=== PATIENT | female | born 1985 | race Caucasian/White ===

== ENCOUNTER → 2017-07-03 08:53 | Outpatient (CLI) | payer OTHER, SELFPAY ==
--- NOTE | 2017-07-03 10:30 | BRBX_PTH ---
PATIENT: JOVANA ISAAC LOC: [facility] U#:[id number] AGE/SX: 39/F ROOM: RE07/03/[address]: Dr. Lore Sanchez MD : 1985 BED: DIS: SPEC #: [id number] RECD: 07/03/17 10:49 STATUS: DANIEL REQ #: [id number] SOMMER: 07/03/17 10:[address]: Lore Sanchez DEPT: SURGICAL PATHOLOGY RECD BY: Peg Newberry ENTERED: 07/03/17 12:27 SP TYPE: BREAST BX OTHR DR: Marisa Steele, MANAGER LIGHTING-C Tissues: Right breast, NOS Procedures: Surgery Specimen Level IV HEADER OPERATION: Right breast stereotactic needle core biopsy PRE-OP DIAGNOSIS: Abnormal mammogram TISSUE SUBMITTED: Right breast, 8 mm nodular density posterior ISCHEMIC TIME: 2 minutes FIXATION TIME: 9 hours MICROSCOPIC DIAGNOSIS Right breast, stereotactic needle core biopsy: Fibroadenoma. AM:paloma 07/04/17 MICROSCOPIC DESCRIPTION Slides are reviewed. GROSS DESCRIPTION Received in fixative is one container labeled with the patient's name and designated right breast. The specimen consists of multiple irregular and elongated fragments of yellow-marshall soft tissue that in aggregate measure 7 x 5 x 0.2 cm. The specimen is totally submitted in four cassettes. / AM:paloma 07/03/17 TC:5 CPT: 14614
--- NOTE | 2017-07-03 10:41 | PCM.OPRPT ---
Report of Operation Date of Procedure: 07/03/17 Pre-Operative Diagnosis: abnormal lesion noted on right breast mammograms Post-Operative Diagnosis: same Surgery/Procedure Performed:: right stereotactic breast biopsy Description of Surgical Findings:: abnormal density noted on right breast mammograms Type of Anesthesia:: Local - 1% xylocaine Specimen's removed: right breast tissue Estimated Blood Loss (mL): < 1 ml Description of Procedure: After informed consent was given, the patient was brought into the breast biopsy suite and then placed in the prone position on the stereotactic biopsy table. Appropriate time out protocol was followed. The patients right breast was then placed in the opening at the head of the table. A roll up guider operator compression mammogram was then obtained in the CC view. The suspicious radiological lesion was then identified. Stereo pictures of the lesion were then taken for XYZ coordinates. The Mammotome biopsy stylus was then positioned where it would be entering into the patients breast. The skin at this site was then cleansed with a surgical skin preparation. The skin and subcutaneous tissues at this site were then infiltrated with 1% xylocaine. A small skin incision was made with an 11 blade scalpel. The biopsy stylus was then positioned into the patients breast at the proper coordinates of depth. Using the Mammotome vacuum-assist device, several core samples of breast tissue were obtained. A hemostatic marker clip was then placed into the biopsy cavity and a roll up guider operator film revealed that it was properly deployed. The patient was then placed in the supine position and pressure was applied to the breast until no active bleeding was noted. Steristrips were applied to reapproximate the skin. A unilateral mammogram in the CC and MLO view were then taken which revealed that the marker clip was in the same area as the previous suspicious lesion. The patient tolerated the procedure well and was discharged from the breast biopsy suite in good condition. - Complications none noted - Admit VTE Documentation VTE Present on Admission: No
== END ==
PROVIDERS: Family Provider Nurse Practitioner Adult Health; PCP Nurse Practitioner Adult Health; Visit Provider Surgery
DX: D24.1 Benign neoplasm of right breast (principal)
CPT/HCPCS: 19081; 88305; J7050; A4648

== ENCOUNTER 2017-07-07 09:17 | Emergency (ER) | payer OTHER, SELFPAY ==
[2017-07-07 09:19] VITALS: BP 140/75; PULSE 75; RESP 14; TEMP 36.2; O2SAT 100; BMI 37.4
--- NOTE | 2017-07-07 09:45 | ED.DCSUM_ITS ---
- ER Visit Summary Date of Service: 07/07/17 Chief Complaint: Right breast bruising History of Present Illness: The patient is a 32 F presenting with bruising to her right breast. She had a biopsy performed per Dr. Sanchez on July 03. She states this morning she awoke and had new bruising just distal to the incision site. There is no redness or warmth. No fever. Denies other complaints. Physical Examination: Vitals are stable. Patient is afebrile. Alert no acute distress. HEENT exam is unremarkable. Neck is supple. Lungs are clear and equal bilaterally. Right breast incision C/D/I, small area of ecchymosis distal to incision site. No erythema, warmth, or drainage. No significant swelling. Heart is regular rate and rhythm. Abdomen is soft nontender nondistended. Extremities are unremarkable. Skin is warm and dry. Remainder of exam is unremarkable. Emergency Department Course and Treatment: Wound appears well-healing. There are no signs of infection. Discussed with Dr. Alcazar. Patient will follow-up with him tomorrow for a wound check. Patient is agreeable with this plan. Disposition: Discharge home Impression: Right breast wound check This note was generated with [employer] dictation software. It may contain incorrect words, spelling, and punctuation that were not noted in review of the chart prior to signing ED Disposition - Plan for ED Patient: Chief Complaint: Wound Check Referrals: Marisa Steele NP-C [Primary Care Provider] -
--- NOTE | 2017-07-07 10:22 | ED.DEP ---
ED Disposition - Plan for ED Patient: Chief Complaint: Wound Check Instructions: ED Wound Check Post Op No Infec Referrals: Marisa Steele NP-Master [Primary Care Provider] - Bert Alcazar MD [STAFF PHYSICIAN] - Additional Instructions: Follow up with Dr Alcazar tomorrow at 9:10am.
--- NOTE | 2017-07-07 10:24 | ED.DEP ---
ED Disposition - Plan for ED Patient: Chief Complaint: Wound Check Instructions: ED Wound Check Post Op No Infec Referrals: Bert Alcazar MD [STAFF PHYSICIAN] - Marisa Steele NP-C [Primary Care Provider] - Additional Instructions: Follow up with Dr Alcazar tomorrow at 9:10am.
== END 2017-07-07 10:30 | disposition home or self-care (01) ==
PROVIDERS: Emergency Provider Emergency Medicine; Family Provider Nurse Practitioner Adult Health; PCP Nurse Practitioner Adult Health
DX: Z48.01 Encounter for change or removal of surgical wound dressing (principal); E07.9 Disorder of thyroid, unspecified
CPT/HCPCS: 99282

== ENCOUNTER 2018-08-09 08:33 | Emergency (ER) | payer OTHER, SELFPAY ==
[2018-08-09 08:34] VITALS: BP 141/90; PULSE 87; RESP 20; TEMP 36.7; O2SAT 100; BMI 35.9
--- NOTE | 2018-08-09 08:38 | RAD_ITS ---
STUDY: X-RAY CHEST REASON FOR EXAM: Female, 33 years old. Chest pain TECHNIQUE: Single AP portable view of the chest. COMPARISON: 05/09/2015 FINDINGS: The lungs are clear and expanded. There is no demonstrated pleural abnormality. Normal size heart. Normal mediastinum and ranjan. Normal visualized pulmonary arteries. Normal visualized aortic arch and descending thoracic aorta. Normal visualized thoracic spine. Normal visualized ribs, clavicles, and shoulders. There is no demonstrated abnormality of the visualized soft tissue structures of the upper abdomen. RAD/Chest 1 View (Portable) IMPRESSION: Normal x-ray examination of the chest. Electronically Signed: Alberto Sanchez DO at 8:53 EDT Tel , Service support ,
--- NOTE | 2018-08-09 08:38 | EKG12_ITS ---
Test Reason : CP Blood Pressure : / mmHG Vent. Rate : 083 BPM Atrial Rate : 083 BPM P-R Int : 158 ms QRS Dur : 082 ms QT Int : 374 ms P-R-T Axes : 044 022 005 degrees QTc Int : 439 ms Normal sinus rhythm Cannot rule out Anterior infarct , age undetermined Abnormal ECG Confirmed by DAVID SAAB, MICHAEL ([id number]), editor city MARLY WESLEY ([id number]) on 08/12/2018 1:23:04 PM Referred By: AL Confirmed By:MICHAEL HERNANDEZ MD
--- NOTE | 2018-08-09 08:40 | ED.DCSUM_ITS ---
- ER Visit Summary Date of Service: 08/09/18 Chief Complaint: Chest pain History of Present Illness: The patient is a 33 F who presents with chest pain. She states that ever since last night she has had a heaviness in the middle part of her chest. It does not radiate. Nothing seems to make this better or worse. She denies nausea, vomiting or shortness of breath. She did have some palpitations last night. She measured her heart rate and it was between 112 and 114. She does have a history of anxiety and thinks it may be contributed to this. She has no cardiac, PE or DVT risk factors. She took no medications for this at home. Physical Examination: Vital signs reviewed. HEENT exam unremarkable. Heart is regular rate and rhythm without murmurs. Lungs are clear to auscultation. Abdomen is soft and nontender. Extremities reveal no edema. Peripheral pulses are equal. Skin exam normal. Neurologic exam normal. Test Results: EKG is normal sinus rhythm with a rate of 89. No ST changes. Intervals normal. Chest x-ray normal. Hemoglobin 11.6, chloride 111. Troponin less than 0.015. Emergency Department Course and Treatment: The patient was given aspirin. She is PERC negative. Her MARKY score is 0. I feel this is likely anxiety. The patient will be discharged home. She will call her doctor for follow-up. She will discuss her anxiety with him/her at this time Treatment Plan: [] Disposition: Discharge Impression: Chest pain, anxiety This note was generated with [employer] software. It may contain incorrect words, spelling, and punctuation that were not noted in review of the chart prior to signing ED Disposition - Plan for ED Patient: Referrals: Marisa Steele, KILO-C [Primary Care Provider] -
[2018-08-09 08:55] LABS: Absolute Lymphocyte Count 1.38 X10^3/ul (0.83-4.51); Absolute Neutrophil Count 2.9 X10^3/uL (2.0-7.7); Basophil# 0.02 X10^3/uL; Basophil% 0.4 % (0-1); Eosinophil# 0.14 X10^3/uL; Eosinophils% 2.9 % (0-5); Hemoglobin 11.6 g/dl (12.0-15.0); Lymphocyte # 1.38 X10^3/ul (4.0); Lymphocyte % 28.3 % (19-41); Mean Corp Hgb Conc 31.4 g/gl (32-36); Mean Corpuscular Hgb 26.7 pg (27.0-32.0); Mean Corpuscular Volume 85.1 fL (81-99); Mean Platelet Vol. 8.3 fl (6.2-12.0); Monocyte# 0.42 X10^3/uL; Monocyte% 8.6 % (0-10); Neutrophil # 2.92 X10^3/uL (2.7-7.7); Neutrophil % 59.8 % (47-70); POSITIVE COUNT NO; POSITIVE DIFFERENTIAL NO; POSITIVE MORPHOLOGY NO; Platelet Count 230 K/mm3 (150-450); RBC Distribution Width CV 13.8 % (11.6-14.6); RBC Distribution Width SD 42.8 fl (35.1-43.9); Red Blood Count 4.35 M/mm3 (4.2-5.4); White Blood Count 4.9 K/mm3 (4.4-11.0)
[2018-08-09] MEDS: Aspirin 81 MG TAB.CHEW 324 MG PO (08:55)
[2018-08-09 09:06] LABS: Anion Gap 4 (5-15); BUN 11 mg/dL (7-18); BUN/Creat Ratio 13.6 RATIO (10-20); Calcium,Total 8.2 mg/dL (8.5-10.1); Chloride 111 mmol/L (98-107); Creatinine, Serum 0.81 mg/dL (0.55-1.02); EST Glomerular Filtration Rate 88 mL/min (>60); Est Glom Filt Rate - Afr Amer 106 mL/min (>60); Estimated Creatinine Clearance 94.21 ml/min; Glucose 89 mg/dL (74-106); Potassium 3.8 mmol/L (3.5-5.1); Sodium Level 142 mmol/L (136-145)
--- NOTE | 2018-08-09 09:13 | ED.DEP ---
ED Disposition - Plan for ED Patient: Disposition: Home or Assisted Living Instructions: ED Chest Pain NonCardiac Referrals: Marisa Steele NP-C [Primary Care Provider] -
[2018-08-09 09:26] VITALS: BP 137/81; PULSE 72; RESP 16; O2SAT 98
== END 2018-08-09 09:27 | disposition home or self-care (01) ==
PROVIDERS: Emergency Provider Emergency Medicine; Family Provider Nurse Practitioner Adult Health; PCP Nurse Practitioner Adult Health
DX: R07.9 Chest pain, unspecified (principal); F41.9 Anxiety disorder, unspecified; E03.9 Hypothyroidism, unspecified
CPT/HCPCS: 71045; 80048; 84484; 85025; 93005; 99284; A4216

== ENCOUNTER 2019-06-11 11:42 | Day surgery (SDC) | payer OTHER, SELFPAY ==
[2019-06-11] VITALS (7 sets, daily range): BP systolic 120–126; BP diastolic 58–74; PULSE 66–80; RESP 15–16; TEMP 36.5–36.7; O2SAT 80–100; BMI 36.0
--- NOTE | 2019-06-11 | EMB_PTH ---
PATIENT: JOVANA ISAAC LOC: [facility] – [place] U#:[id number] AGE/SX: 34/F ROOM: RE06/11/[address]: Dr. Azucena Judge DO : 1985 BED: DIS: 06/11/2019 SPEC #: [id number] RECD: 06/11/19 17:01 STATUS: DANIEL IDRIS #: [id number] SOMMER: 06/11/19 00:[address]: Azucena Judge DEPT: SURGICAL PATHOLOGY RECD BY: Phoenix Harper ENTERED: 06/12/19 10:03 SP TYPE: ENDOM BX/C OTHR DR: Dr. Clarke Haynes MD Tissues: Endometrium, NOS Procedures: Surgery Specimen Level IV HEADER OPERATION: Hysteroscopy, polypectomy, Mirena IUD insertion PRE-OP DIAGNOSIS: Menorrhagia; endometrial polyp TISSUE SUBMITTED: Endometrial polyp tissue MICROSCOPIC DIAGNOSIS Endometrial polyp, biopsy: Polypoid fragments of secretory endometrium. AM:paloma 06/15/19 MICROSCOPIC DESCRIPTION Slides are reviewed. GROSS DESCRIPTION Received in fixative is one container labeled with the patient's name and designated endometrial polyp tissue. The specimen consists of multiple irregular fragments of marshall soft tissue that in aggregate measure 3 x 2.5 x 0.3 cm. The specimen is totally submitted in one cassette. / SJ:paloma 07/13/19 TC:5 CPT: 50293
--- NOTE | 2019-06-11 07:43 | HP.PCM_ITS ---
- Problem List (1) Menorrhagia Status: Acute (2) Endometrial polyp Status: Acute History Date of Admission: 06/11/19 Final MAGALY Source: LMP History of this : This is a 34 year-old with menorrhagia who desires an IUD. Prior IUD expelled and US showed a uterine polyp. Medical History: Medical History (Last Updated 06/11/19 @ 07:[address] Azucena Judge, DO) Thyroid disease E07.9 Allergies amoxicillin [Amoxicillin] Allergy (Verified 05/08/19 11:04) Rash banana [Banana] Allergy (Verified 05/08/19 11:04) Itching Home Medications: Home Medications Levothyroxine [Synthroid] 125 mcg PO DAILY 11/17/13 Smoking Status: Never smoker History Past Pregnancies: Past Pregnancies Delivery Date Name GA/ Weeks Outcome Route Wt Sex Labor Length Anesthesia Delivery Location Provider FOB Physical Exam General: Alert, No apparent distress HEENT: Atraumatic Cardiovascular: Regular rate Lungs: Clear to auscultation Abdomen: Soft, Non Tender, Non-Distended Extremities:: No edema Neurological: Neuro grossly intact MAINTENANCE GROUNDSKEEPER: Normal external genitalia Assessment/Plan All Active Problems Menorrhagia (Acute) Endometrial polyp (Acute) This is a 34 year-old with menorrhagia and a polyp who desires an IUD. Reviewed r/b/a of hysteroscopy, polypectomy, IUD placement. Pt desires to proceed with surgery.
[2019-06-11 12:17] LABS: Hematocrit 40.9 % (37-47); Hemoglobin 13.5 g/dL (12.0-15.0); Mean Corpuscular Hgb 28.6 pg (27.0-32.0); Mean Corpuscular Volume 86.7 fL (81-99); Platelet Count 245 K/mm3 (150-450); RBC Distribution Width CV 12.9 % (11.6-14.6); RBC Distribution Width SD 40.5 fl (35.1-43.9); Red Blood Count 4.72 M/mm3 (4.2-5.4); White Blood Count 4.6 K/mm3 (4.4-11.0)
[2019-06-11 12:28] LABS: Internal QC Validated? YES +Cl - CLEAR BKGD; Pregnancy, Urine Negative Negative
[2019-06-11] MEDS: Lactated Ringers 1,000 ML 100 ML IV (12:31)
--- NOTE | 2019-06-11 15:24 | PCM.DC.D&C ---
Discharge Diet: No Restrictions Discharge Activity: May not drive while taking narcotic pain medications., May Shower May resume sexual activity in: 1-2 weeks Weight Bearing Status: Weight bearing as tolerated Lifting Restrictions: None Call your doctor if you observe: Fever of 101 or Higher, Inability to urinate, Inability to have a bowel movement, Using more than one pad per hour, Shortness of breath, Dizziness, Chest pain, Increased palpitations (irregular heartbeat), Calf discomfort, Uncontrolled pain Allergies/Adverse Reactions: Allergies amoxicillin [Amoxicillin] Allergy (Verified 06/11/19 12:21) Rash banana [Banana] Allergy (Verified 06/11/19 12:21) Itching Medications to take at Discharge Levothyroxine [Synthroid] 125 mcg PO DAILY 11/17/13 Primary Care Physician: Clarke Haynes MD [Primary Care Provider] - Test Results: Test results from this visit will be discussed in further detail at your follow-up appointment, if applicable. Please Follow Up With: Azucena Judge DO When: 1 week
--- NOTE | 2019-06-11 15:25 | PCM.OPRPT ---
Problem List (1) Menorrhagia Status: Acute (2) Endometrial polyp Status: Acute Report of Operation Date of Procedure: 06/11/19 Pre-Operative Diagnosis: Menorrhagia, prior IUD expelled, polyp noted on pelvic US, desires Mirena IUD Post-Operative Diagnosis: As above Surgery/Procedure Performed:: Hysteroscopy, polypectomy, IUD placement Description of Surgical Findings:: There was a possible small anterior polyp noted. Otherwise uterine cavity appeared normal and bilateral tubal ostia were visualized. Uterus sounded to 9 cm. Type of Anesthesia:: MAC Special Medications: None Specimen's removed: Endometrial polyp Drains: None Estimated Blood Loss (mL): 10 Fluids Replaced: Deficit of 200 cc Description of Procedure: Patient was taken to the operating room where she was prepped and draped in the usual sterile fashion in dorsal lithotomy position. MAC anesthesia was found to be adequate. A weighted speculum was placed into the vagina and the cervix was exposed. A single-tooth tenaculum was placed on the anterior lip of the cervix. The cervix was serially dilated to accommodate the Symphion hysteroscope. The hysteroscope was advanced to the fundus of the uterus and the uterus was distended with normal saline. There was a small polypoid appearing lesion on the anterior wall of the uterus that was removed using the Symphion resecting device. The hysteroscope was then removed. The uterus sounded to 9 cm. The Mirena IUD was placed in usual fashion. The IUD strings were trimmed to 2 cm in length. Bleeding was hemostatic. All instruments were removed from the vagina and vaginal sweep was performed. Instrument counts were correct. The patient was taken to the recovery in stable condition. Grafts/Implants Used: Mirena IUD - Complications None - Admit VTE Documentation VTE Present on Admission: No VTE Mechan Device Prophylaxis: SCD's
== END 2019-06-11 16:40 | disposition home or self-care (01) ==
LOC: SDC 11:42 → AC 11:46
PROVIDERS: Anesthesiology; PCP Family Medicine; Referring Provider Obstetrics & Gynecology; Visit Provider Obstetrics & Gynecology
PROC: 0UB98ZZ Excision of Uterus, Via Natural or Artificial Opening Endoscopic (ICD-10-PCS; CPT 58558; principal; 2019-06-11 13:05)
DX: N92.0 Excessive and frequent menstruation with regular cycle (principal); N84.0 Polyp of corpus uteri; Z30.430 Encounter for insertion of intrauterine contraceptive device; E07.9 Disorder of thyroid, unspecified
CPT/HCPCS: 58300; 58558; 36415; 81025; 85027; 86850; 86900; 86901; 88305; J7120; J2405

== ENCOUNTER 2019-11-19 12:59 | Emergency (ER) | payer OTHER, SELFPAY ==
[2019-06-11 12:22] VITALS: BMI 36.0
[2019-11-19 13:01] VITALS: BP 147/82; PULSE 86; RESP 16; TEMP 36.8; O2SAT 98; BMI 36.4
--- NOTE | 2019-11-19 13:05 | ED.VIS.GEN ---
History of Present Illness Chief Complaint: Foreign Body Informant: Patient Onset: Today Narrative: 34-year-old female presents with foreign body sensation in her esophagus. She states this started last evening eating toast. She never had difficulty keeping food or fluids down. She called her doctor's office today to get an appointment and she was told to come to the ER because I do not treat that type of pain. She is currently tolerating her own secretions. She has taken nothing for pain prior to arrival because she did not know what to take. She states she only has hypothyroidism and no other medical problems. Feels generally well except for the swallowing difficulty. Past Medical History - Allergies and Home Meds Allergies/Adverse Reactions: Allergies amoxicillin [Amoxicillin] Allergy (Verified 11/19/19 13:01) Rash banana [Banana] Allergy (Verified 11/19/19 13:01) Itching Primary Care Physician: Clarke Haynes MD [Primary Care Provider] - Past Medical History: - - Hypothyroidism Surgical History: noncontributory Lives: With Family Smoking Status: Never smoker Alcohol: None Drugs: None Review of Systems General: Denies: Chills, Fever, Sweats Eyes: Denies: Visual changes - bilaterally, Diplopia ENT: Reports: - - Foreign body sensation esophagus. Denies: Bilateral ear pain, Rhinorrhea Respiratory: Denies: Dyspnea, Cough Gastrointestinal: Denies: Abdominal pain, Nausea, Vomiting Genitourinary: Denies: Dysuria Musculoskeletal: Denies: Myalgias, Arthralgias Skin: Denies: Rash Neurological: Denies: Headache, Weakness Physical Exam Vital Signs/Narrative: Vital Signs Temp Pulse Resp BP Pulse Ox 11/19/19 13:01 98.2 F 86 16 147/82 H 98 Inital Vital Signs reviewed: Yes General: Well nourished, Well developed, No Acute Distress Head: Normocephalic, Atraumatic Eyes: Perrl, EOMI ENT: Moist mucous membranes, No rhinorrhea, - - Patient is tolerating her own secretions. Neck: Supple, Nontender Cardiovascular: Regular rate, Regular rhythm Respiratory: No distress Abdomen: Soft, Nontender, Nondistended Extremities: No edema Skin: Normal color, No rash Neurological: Alert, Oriented x3 Psychological: Normal affect, Normal Mood Diagnostic/Tx/Re-eval - Medical Decision Making Patient presents for foreign body sensation in the esophagus after eating toast. She is tolerating her own secretions. I do not believe she needs emergent endoscopy. I will give her the on-call surgeon who can perform endoscopy if this does not resolve. If improving she can follow-up with her primary care physician. Given return precautions. Impression: 1. Globus hystericus ED Disposition - Plan for ED Patient: Disposition: Home or Assisted Living Instructions: ED Dysphagia Adult Referrals: Clarke Haynes MD [Primary Care Provider] -
[2019-11-19] MEDS: Mag Hydrox/Al Hydrox/Simeth 30 ML UDC PO (13:28)
--- NOTE | 2019-11-19 13:29 | ED.DCSUM_ITS ---
- ER Visit Summary Date of Service: 11/19/19 Chief Complaint: [] History of Present Illness: The patient is a 34 F [] Physical Examination: [] Test Results: [] Emergency Department Course and Treatment: [] Treatment Plan: [] Disposition: [] Impression: [] This note was generated with [employer] dictation software. It may contain incorrect words, spelling, and punctuation that were not noted in review of the chart prior to signing ED Disposition - Plan for ED Patient: Disposition: Home or Assisted Living Instructions: ED Dysphagia Adult Prescriptions: Sucralfate [Carafate] 1 gm PO BID #30 udc Transmission Status: Received by AL MCCARTHY RD Famotidine [Pepcid] 20 mg PO DAILY PRN #30 tab.chew PRN Reason: Pain Score 1-10/10 Transmission Status: Received by AL MCCARTHY RD Referrals: Clarke Haynes MD [Primary Care Provider] -
== END 2019-11-19 13:35 | disposition home or self-care (01) ==
PROVIDERS: Emergency Provider Student in an Organized Health Care Education/Training Program; PCP Family Medicine
DX: F45.8 Other somatoform disorders (principal); E03.9 Hypothyroidism, unspecified
CPT/HCPCS: 99283

== ENCOUNTER → 2020-08-24 08:55 | Outpatient (CLI) | payer OTHER, SELFPAY ==
--- NOTE | 2020-08-24 12:58 | NEURO ---
NCS and/or EMG Patient Report Ordering Doctor: Eric Salvador Jr. DATE OF SERVICE: 08/24/20 Nisa Nava presents for electrodiagnostic testing of the left lower limb. She reports tingling in the left foot which radiates to the knee. Electrodiagnostic findings: Left peroneal motor nerve demonstrates normal distal latency, amplitude and conduction velocity. Normal left tibial motor response. Normal tibial and peroneal F-wave. H reflex normal bilaterally. Sensory responses are within normal limits. On needle EMG, decreased recruitment pattern is noted in the left tibialis anterior. All other muscles tested showed no evidence of denervation with normal motor unit action potentials. Electrodiagnostic impression: This is an abnormal study. 1. 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 There is no electrodiagnostic findings suggestive of lumbar radiculopathy. Would recommend repeat testing in 6 months if symptoms persist.
== END ==
PROVIDERS: PCP Family Medicine; Referring Provider Family Medicine; Visit Provider Family Medicine
DX: M54.16 Radiculopathy, lumbar region (principal)
CPT/HCPCS: 95886; 95910

== ENCOUNTER 2022-06-19 09:11 | Emergency (ER) | payer OTHER, SELFPAY ==
[2022-06-19 09:12] VITALS: BP 150/86; PULSE 81; RESP 20; TEMP 36.6; O2SAT 100; BMI 40.3
--- NOTE | 2022-06-19 09:32 | EDS_ITS ---
HPI HPI - GI History of Present Illness Chief Complaint: Flank Pain Narrative Narrative: 37-year-old female presenting with acute onset right flank pain this morning about 7 AM when she woke up. She states that it wraps around to her lower abdomen. It is associated symptoms of nausea and vomiting. He is having trouble finding a position of comfort. She denies any urinary symptoms at this time. Patient has a history of kidney stones in the past. No fevers or chills. She states a car ride over to the hospital was very painful. Patient states there is no chance she could be . Patient does mention that she has been constipated and has not have been good bowel movements. [facility] Medical History (Updated 06/19/22 @ 10:[address] Giovanni Malagon, ) Thyroid disease Home Medications levothyroxine 125 mcg tablet 125 mcg PO DAILY 11/17/13 [History Last Taken 06/11/19 07:00] ciprofloxacin HCl 500 mg tablet (Cipro) 500 mg PO BID #13 tabs 06/19/22 [Rx Last Taken Unknown] ondansetron 4 mg disintegrating tablet 4 mg PO Q8H PRN PRN Nausea #14 tabs 06/19/22 [Rx Last Taken Unknown] oxycodone-acetaminophen 5 mg-325 mg tablet (Percocet) 1 tab PO Q8H PRN pain 3 days #12 tabs 06/19/22 [Rx Last Taken Unknown] Allergy/AdvReac Type Severity Reaction Status Date / Time amoxicillin [Amoxicillin] Allergy Rash Verified 06/19/22 09:11 banana [Banana] Allergy Itching Verified 06/19/22 09:11 Social History Smoking Status: Never smoker [facility] ED Constitutional Constitutional ED: Reports sweats; Denies chills or fever(s) ENT ENT ED: Denies rhinorrhea or sore throat Cardiovascular Cardiovascular: Denies chest pain or palpitations Respiratory/Chest Respiratory/Chest: Denies cough or dyspnea Gastrointestinal Gastrointestinal: Reports abdominal pain, nausea and vomiting Genitourinary Genitourinary ED: Denies dysuria or hematuria Musculoskeletal Musculoskeletal: Reports arthralgias and back pain Integumentary Denies abscess or Abrasions Neurologic Neurologic: Denies headache(s) or paresthesias Psychiatric Psychiatric: Denies anxiety or depression EXAM Physical Exam Const Vital Signs: 06/19/22 09:12 06/19/22 09:26 06/19/22 10:40 Temperature 97.9 F 98 F Temperature Source Temporal Temporal Pulse Rate 81 70 Respiratory Rate 20 H 16 Respiratory Pattern Normal Blood Pressure 150/86 H 125/59 H Blood Pressure Mean 107 81 Pulse Ox 100 98 Oxygen Delivery Method Room Air Room Air 06/19/22 10:40 Temperature Temperature Source Pulse Rate Respiratory Rate Respiratory Pattern Blood Pressure 125/69 H Blood Pressure Mean 87 Pulse Ox Oxygen Delivery Method Positive well nourished General Appearance ED: NAD HEENT Reports TM's clear and moist mucous membranes Negative for normocephalic or atraumatic Tympanic Membrane ED: Yes TM's clear Eyes PERRL and EOMs intact bilaterally Resp normal respiratory effort Effort and Inspection: Negative for respiratory distress Cardio regular rate and regular rhythm GI Palpation: tender RLQ Back/Spine General Back: CVA tenderness right Neuro CN's II-XII intact bilaterally and moves all extremities Sensorium / Orientation: alert Motor Exam: strength 5/5 throughout Psych mental status grossly normal Skin no wounds MDM MDM MDM Narrative Medical decision making narrative: Patient presenting with acute onset right flank pain. Differential includes at this point kidney stone, pyelonephritis, UTI, constipation. Patient medicated with morphine, Zofran, Toradol. She is given a liter of normal saline. CBC shows a white blood cell count of 6.9, hemoglobin hematocrit stable. Platelets normal. Creatinine slightly elevated 1.05. Electrolytes normal. Urinalysis shows occult blood as well as 500 leukocyte esterase, 10-25 WBCs, 10-25 squamous epithelials and 2+ bacteria. CT of the abdomen pelvis without contrast shows 2 separate 2 mm calcifications in the distal right ureter likely responsible for the right-sided hydronephrosis and hydroureter with perinephric and periureteral stranding. Outpatient reevaluation she has some pain well controlled. We discussed outpatient follow-up with urology. She was given a dose of oxycodone in the ER. She will be given oxycodone and Zofran for home. I also started her on antibiotics because her urine shows white blood cells and 500 leukocyte esterase. Urine culture was sent. She is counseled to use stool softener or laxative if she becomes constipated. Return precautions discussed. Impression: 1. Two 2 mm right ureteral stones 2. Pyelonephritis 3. Nausea/vomiting Lab Data Labs: Laboratory Results - last 24 hr 06/19/22 06/19/22 06/19/22 09:34 09:34 09:45 WBC 6.9 RBC 4.41 Hgb 12.6 Hct 38.5 MCV 87.3 MCH 28.6 MCHC 32.7 RDW Std Deviation 41.8 RDW Coeff of Kimi 13.1 Plt Count 297 MPV 8.8 Immature Gran % (Auto) 0.100 Neut % (Auto) 71.7 H Lymph % (Auto) 19.1 [place] % (Auto) 5.8 Eos % (Auto) 2.7 Baso % (Auto) 0.6 Absolute Neuts (auto) 5.0 Absolute Lymphs (auto) 1.32 Nucleated RBC % 0 Sodium 139 Potassium 3.8 Chloride 106 Carbon Dioxide 26.0 Anion Gap 7 BUN 13 Creatinine 1.05 H Estim Creat Clear Calc 70.01 Est GFR (MDRD) Af Amer 77 Est GFR (MDRD) Non-Af 63 BUN/Creatinine Ratio 12.4 Glucose 116 H Calcium 8.7 Urine Color Yellow Urine Clarity Sl. Cloudy Urine pH 5.0 Ur Specific [place] 1.025 Urine Protein 15 H Urine Glucose (UA) Normal Urine Ketones Negative Urine Occult Blood 250 H Urine Nitrite Negative Urine Bilirubin Negative Urine Urobilinogen Normal Ur Leukocyte Esterase 500 H Urine RBC 0 SEEN Urine WBC 10-25 SEEN Ur Squamous Epith Cells 10-25 SEEN Urine Bacteria 2+ Urine Mucus 0 SEEN Radiography Diagnostic Testing: Clinical Impression(s) from Imaging Studies Abdomen/Pelvis CT 06/19/22 09:32 IMPRESSION: 2 separate 2 mm calcifications in the distal right ureter likely responsible for right-sided hydronephrosis and hydroureter with perinephric and periureteral inflammatory stranding. Remaining solid organs are unremarkable. No free peritoneal fluid, air, or suspicious adenopathy, normal appendix visualized Electronically Signed: Abimael Bernstein MD at 10:22 EDT Reading Location ID and State: [facility] / [place] , Service support , Discharge Plan Triage Chief Complaint: Flank Pain ED Provider: Giovanni Malagon Dx/Rx/DC Orders Instructions: ED Pyelonephritis, Female (Adult), ED Kidney Stone w/ Colic Prescriptions: New ciprofloxacin HCl [Cipro] 500 mg tablet 500 mg PO BID Qty: 13 0RF oxycodone-acetaminophen [Percocet] 5-325 mg tablet 1 tab PO Q8H PRN (Reason: pain) 3 Days Qty: 12 0RF ondansetron 4 mg tablet,disintegrating 4 mg PO Q8H PRN PRN (Reason: Nausea) Qty: 14 0RF No Action levothyroxine 125 MCG tablet 125 mcg PO DAILY Label Comments: hypothyroid Stand Alone Forms: ED Work / School Excuse Primary Care Provider: Clarke Haynes Referrals: Anita Smith MD [Med Staff - Active Staff] - As soon as possible Clarke Haynes MD [Primary Care Provider] - Disposition Disposition: Home, Self Care Discharge Date/Time: 06/19/22 10:56
--- NOTE | 2022-06-19 09:32 | CT_ITS ---
STUDY: CT ABDOMEN AND PELVIS WITHOUT CONTRAST REASON FOR EXAM: Female, 37 years old. Kidney Stone-RIGHT FLANK PAIN RADIATION DOSAGE (If Supplied By Facility): CTDIvol = ( 22.17 ) mGy, DLP = ( 1128.35 ) mGycm TECHNIQUE: Transaxial images were obtained from the dome of the diaphragm to the symphysis pubis without oral contrast, and without intravenous contrast. Sagittal and coronal images were reconstructed. Individualized dose optimization techniques were used for this CT. COMPARISON: None. FINDINGS: The visualized lung bases are unremarkable. The visualized portions of the heart are within normal limits. Normal liver. Normal gallbladder and extrahepatic biliary system. Normal spleen. 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 Normal pancreas. Normal bilateral adrenal glands. Left kidney is free of obstructive uropathy, or suspicious solid renal lesion. Right kidney shows hydronephrosis and hydroureter with perinephric and periureteral inflammatory stranding. Findings due to 2 separate calcifications within the distal right ureter both measure approximately 2 mm in size. These are seen on axial image 107 and coronal recon image 70. Normal visualized stomach. Normal small intestine. Normal colon. The appendix is visualized and appears normal. Appendix seen on coronal recon images 85-90 Normal abdominal aorta. Normal inferior vena cava. Normal retroperitoneum. Normal urinary bladder. Normal visualized uterus. No suspicious adnexal mass or free fluid Normal abdominal wall. Normal osseous structures. CT/Abdomen/Pelvis without Cont IMPRESSION: 2 separate 2 mm calcifications in the distal right ureter likely responsible for right-sided hydronephrosis and hydroureter with perinephric and periureteral inflammatory stranding. Remaining solid organs are unremarkable. No free peritoneal fluid, air, or suspicious adenopathy, normal appendix visualized Electronically Signed: Abimael Bernstein MD at 10:22 EDT ,
[2022-06-19 09:43] LABS: Absolute Lymphocyte Count 1.32 X10^3/uL (0.83-4.51); Basophil# 0.04 X10^3/uL; Basophil% 0.6 % (0-1); Eosinophil# 0.19 X10^3/uL; Eosinophils% 2.7 % (0-5); Hematocrit 38.5 % (37-47); Hemoglobin 12.6 g/dL (12.0-15.0); Lymphocyte # 1.32 X10^3/ul (0.83-4.51); Lymphocyte % 19.1 % (19-41); Mean Corp Hgb Conc 32.7 g/dL (32-36); Mean Corpuscular Hgb 28.6 pg (27.0-32.0); Mean Corpuscular Volume 87.3 fL (81-99); Mean Platelet Vol. 8.8 fl (6.2-12.0); Monocyte% 5.8 % (0-10); NRBC Flagged by Analyzer 0 % (0-5); Neutrophil # 4.96 X10^3/uL (2.7-7.7); Neutrophil % 71.7 % (47-70); Platelet Count 297 K/mm3 (150-450); RBC Distribution Width CV 13.1 % (11.6-14.6); RBC Distribution Width SD 41.8 fl (35.1-43.9); Red Blood Count 4.41 M/mm3 (4.2-5.4); White Blood Count 6.9 K/mm3 (4.4-11.0)
[2022-06-19] MEDS: Ondansetron 4 MG/2 ML Vial IV (09:44)
[2022-06-19] MEDS: Morphine 4 MG/ML Syringe IV (09:45)
[2022-06-19 09:52] LABS: Anion Gap 7 (5-15); BUN 13 mg/dL (7-18); BUN/Creat Ratio 12.4 RATIO (10-20); Calcium,Total 8.7 mg/dL (8.5-10.1); Chloride 106 mmol/L (98-107); Creatinine, Serum 1.05 mg/dL (0.55-1.02); EST Glomerular Filtration Rate 63 mL/min (>60); Est Glom Filt Rate - Afr Amer 77 mL/min (>60); Estimated Creatinine Clearance 70.01 ml/min; Glucose 116 mg/dL (74-106); Potassium 3.8 mmol/L (3.5-5.1); Sodium Level 139 mmol/L (136-145)
[2022-06-19 09:54] LABS: Mucous, Urine 0 SEEN /hpf (<or=2+); Red Blood Cells-Urine 0 SEEN /hpf (0-5)
[2022-06-19 09:55] LABS: Color, Urine Yellow (Yellow); Glucose, Dipstick Normal (Normal); Ketone-Dipstick Negative (Negative); Leukocyte Esterase-Dipstick 500 /ul (Negative); Nitrite-Dipstick Negative (Negative); Occult Blood-Urine 250 /ul (Negative); Protein-Dipstick 15 mg/dl (Negative); Specific Gravity, Urine 1.025 (1.002-1.030); Urine Bilirubin Dipstick Negative (Negative); Urine Clarity Sl. Cloudy (Clear); Urine Urobilinogen Normal (Normal)
[2022-06-19 10:25] LABS: Bacteria 2+ /hpf (None Seen); Squamous Epithelial Cells - UA 10-25 SEEN /hpf (5-10); White Blood Cells 10-25 SEEN /hpf (0-5)
[2022-06-19] MEDS: Ciprofloxacin 500 MG Tablet PO (10:35)
[2022-06-19] MEDS: oxyCODONE 5 MG Tablet PO (10:35)
[2022-06-19 10:40] VITALS: BP 125/59; BP 125/69; PULSE 70; RESP 16; TEMP 36.6; O2SAT 98
== END 2022-06-19 10:56 | disposition home or self-care (01) ==
PROVIDERS: Emergency Provider Student in an Organized Health Care Education/Training Program; PCP Family Medicine; Visit Provider Student in an Organized Health Care Education/Training Program
DX: N13.2 Hydronephrosis with renal and ureteral calculous obstruction (principal); N12 Tubulo-interstitial nephritis, not specified as acute or chronic; R11.2 Nausea with vomiting, unspecified; E07.9 Disorder of thyroid, unspecified; Z79.899 Other long term (current) drug therapy
CPT/HCPCS: 74176; 80048; 81001; 85025; 87086; 87088; 96374; 96375; 99284; J7030; A4216; J2405

== ENCOUNTER 2023-11-29 09:35 | Emergency (ER) | payer OTHER, SELFPAY ==
[2023-11-29 09:36] VITALS: BP 154/83; PULSE 78; RESP 16; TEMP 36.4; O2SAT 98; BMI 36.0
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
== END 2023-11-29 10:17 | disposition home or self-care (01) ==
LOC: ED 10:08
PROVIDERS: Emergency Provider Emergency Medicine; PCP Family Medicine; Visit Provider Emergency Medicine
DX: Z00.00 Encounter for general adult medical examination without abnormal findings (principal)
CPT/HCPCS: 99282